=== PATIENT | male | born 1985 | race African-American/Black ===

== ENCOUNTER 2017-03-18 18:07 | Inpatient (IN) | payer MEDICARE, MEDICAID ==
[~2017-03-18] VITALS: Ht 193 cm; Wt 73.3 kg
[~2017-03-18 18:07] MED LIST: FOLI1TAB51 PO; HYD500C PO; HYDR-4683 PO; OXYC10TA44 PO
[2017-03-18] MEDS ORDERED: SODIUM CHLORIDE 0.9% 1,000 ML IV ONE ×2 (18:23)
[2017-03-18] MEDS ORDERED: ONDANSETRON HCL 4 MG/2 ML VIAL IV ONE (18:30)
[2017-03-18] MEDS ORDERED: HYDROmorphone HCL 2 MG/ML VL IV ONE (18:30)
[2017-03-18 18:53] LABS: White Blood Cell 20.8 10^3/uL (4.4-10.8)
[2017-03-18 18:54] LABS: Hematocrit 25.3 % (41.0-53.0); Hemoglobin 8.9 g/dL (13.5-17.5); Mean Corpuscular Hemoglobin 37.9 pg (28.0-32.0); Mean Corpuscular Hgb Conc. 35.2 g/dL (32.0-36.0); Mean Corpuscular Volume 107.5 fL (80.0-100.0); Platelet Count (auto) 460 10^3/uL (140-450); Red Blood Cells 2.35 10^6/uL (4.5-5.90)
[2017-03-18 19:06] LABS: INR 1.13 (0.9-1.15); Partial Thromboplastin Time 24.6 sec (22.64-33.71); Prothrombin Time 12.3 sec (9.37-12.3); Red Cell Distribution Width 21.1 % (11.8-14.3)
[2017-03-18 19:07] LABS: Band Neutrophils % (manual) 0; Basophils % (manual) 0 (0.0-2.0); Blast Cells 0; Metamyelocytes % 0; Myelocytes % 0; Promyelocytes % 0; Reactive Lymphocytes 0
[2017-03-18 19:12] LABS: Alanine Aminotransferase 22 U/L (16-61); Albumin 3.6 g/dL (3.4-5.0); Anion Gap 9 (5-15); Aspartate Aminotransferase 23 U/L (15-37); BUN/Creatinine Ratio 10.6; Blood Urea Nitrogen 7 mg/dL (7-18); Carbon Dioxide 23 mmol/L (21-32); Chloride 111 mmol/L (98-107); GFR African American 182 mL/min; GFR Non-African American 151 mL/min; Glucose 101 mg/dL (74-106); Potassium 3.3 mmol/L (3.5-5.1); Sodium 143 mmol/L (136-145)
[2017-03-18 19:17] LABS: Alkaline Phosphatase 88 U/L (45-117); Total Protein 7.4 g/dL (6.4-8.2)
[2017-03-18 19:25] LABS: Eosinophils % (manual) 1 (0-7); Lymphocytes % (manual) 14 (10.0-50.0); Monocytes % (manual) 8 (0-12)
[2017-03-18] MEDS ORDERED: ONDANSETRON HCL 4 MG/2 ML VIAL IV PRN (22:45)
[2017-03-18] MEDS ORDERED: ACETAMINOPHEN 500 MG TAB PO PRN (22:45)
[2017-03-18] MEDS: HYDROmorphone HCL 2 MG/ML VL IV PRN (23:30)
[2017-03-18] MEDS ORDERED: POTASSIUM CHL 20 Meq TABLET PO ONE (23:45)
[2017-03-19] MEDS ORDERED: PIPERACILLIN-TAZOB 3.375GM 50 ML IV ONE
[2017-03-19] MEDS: D5W/SOD CHLO 0.9% 1,000 ML IV SCH ×3 (00:56→10:55)
[2017-03-19 01:39] VITALS: BP 112/63
[2017-03-19] MEDS: HYDROmorphone HCL 2 MG/ML VL IV PRN ×5 (03:30→20:29)
[2017-03-19] MEDS: HYDROcodone-ACET 5/325MG TAB PO PRN ×3 (05:10→15:51)
[2017-03-19 05:28] VITALS: BP 109/64
[2017-03-19 06:22] LABS: Hematocrit 22.2 % (41.0-53.0); Hemoglobin 7.7 g/dL (13.5-17.5); Mean Corpuscular Hemoglobin 37.5 pg (28.0-32.0); Mean Corpuscular Hgb Conc. 34.9 g/dL (32.0-36.0); Mean Corpuscular Volume 107.6 fL (80.0-100.0); Platelet Count (auto) 386 10^3/uL (140-450); Red Blood Cells 2.07 10^6/uL (4.5-5.90); White Blood Cell 14.4 10^3/uL (4.4-10.8)
[2017-03-19 06:32] LABS: Band Neutrophils % (manual) 0; Basophils % (manual) 0 (0.0-2.0); Blast Cells 0; Metamyelocytes % 0; Myelocytes % 0; Promyelocytes % 0; Reactive Lymphocytes 0; Red Cell Distribution Width 20.1 % (11.8-14.3)
[2017-03-19 06:47] LABS: Anion Gap 9 (5-15); BUN/Creatinine Ratio 8.3; Blood Urea Nitrogen 5 mg/dL (7-18); Calcium 7.9 mg/dL (8.5-10.1); Carbon Dioxide 24 mmol/L (21-32); Chloride 110 mmol/L (98-107); GFR African American 203 mL/min; GFR Non-African American 168 mL/min; Glucose 115 mg/dL (74-106); Potassium 3.7 mmol/L (3.5-5.1); Sodium 143 mmol/L (136-145)
[2017-03-19 06:51] LABS: Eosinophils % (manual) 4 (0-7); Lymphocytes % (manual) 20 (10.0-50.0); Monocytes % (manual) 17 (0-12)
[2017-03-19 09:00] VITALS: BP 109/60
[2017-03-19] MEDS ORDERED: HYDROXYUREA 500 MG CAP PO SCH (10:00)
[2017-03-19] MEDS: HYDROXYUREA 500 MG CAP PO SCH ×2 (10:17→22:34)
[2017-03-19] MEDS: FOLIC ACID 1 MG TAB PO SCH (10:18)
[2017-03-19 13:00] VITALS: BP 109/67
[2017-03-19] MEDS ORDERED: HYDROmorphone HCL 2 MG/ML VL IV ONE (13:00)
[2017-03-19 17:00] VITALS: BP 117/73
[2017-03-19 22:00] VITALS: BP 112/62
[2017-03-19] MEDS: HYDROcodone-ACET 10/325MG TAB PO PRN (23:08)
[2017-03-20] MEDS: D5W/SOD CHLO 0.9% 1,000 ML IV SCH ×4 (00:12→23:45)
[2017-03-20] MEDS: HYDROmorphone HCL 2 MG/ML VL IV PRN ×6 (00:43→21:41)
[2017-03-20 05:40] VITALS: BP 108/47
[2017-03-20 06:15] LABS: Hemoglobin 7.5 g/dL (13.5-17.5); Mean Corpuscular Hgb Conc. 35.6 g/dL (32.0-36.0)
[2017-03-20 06:17] LABS: Hematocrit 21.1 % (41.0-53.0); Mean Corpuscular Hemoglobin 38.2 pg (28.0-32.0); Mean Corpuscular Volume 107.2 fL (80.0-100.0); Platelet Count (auto) 401 10^3/uL (140-450); Red Blood Cells 1.97 10^6/uL (4.5-5.90)
[2017-03-20 06:30] LABS: Red Cell Distribution Width 20.4 % (11.8-14.3)
[2017-03-20 06:31] LABS: Band Neutrophils % (manual) 0; Basophils % (manual) 0 (0.0-2.0); Blast Cells 0; Metamyelocytes % 0; Myelocytes % 0; Promyelocytes % 0; Reactive Lymphocytes 0
[2017-03-20 07:01] LABS: Eosinophils % (manual) 12 (0-7); Lymphocytes % (manual) 36 (10.0-50.0); Monocytes % (manual) 23 (0-12)
[2017-03-20] MEDS: HYDROcodone-ACET 10/325MG TAB PO PRN (08:11)
[2017-03-20 08:30] VITALS: BP 99/61
[2017-03-20] MEDS: HYDROXYUREA 500 MG CAP PO SCH ×2 (08:55→21:41)
[2017-03-20] MEDS: FOLIC ACID 1 MG TAB PO SCH (08:55)
[2017-03-20] MEDS: LEVOFLOXACIN 750MG 150 ML IV SCH (08:56)
[2017-03-20 09:51] LABS: Urine Bacteria NONE SEEN /hpf (None Seen); Urine Blood Negative /uL (Negative); Urine Specific Gravity 1.008 (1.001-1.035); Urine WBC <1 /hpf (0 - 3)
[2017-03-20 10:14] LABS: Alcohol, Urine < 3.0 mg/dL (0-5); Amphetamine Screen, Urine NEGATIVE (NEGATIVE); Barbiturate Scree,Urine NEGATIVE (NEGATIVE); Benzodiazephine Screen, Urine NEGATIVE (NEGATIVE); Cannabinoid Screen, Urine POSITIVE (NEGATIVE); Cocaine Screen, Urine NEGATIVE (NEGATIVE); Opiate Scree,Urine POSITIVE (NEGATIVE); Phencyclidine Screen, Urine NEGATIVE (NEGATIVE)
[2017-03-20 12:23] VITALS: BP 109/66
[2017-03-20 17:11] VITALS: BP 101/62
[2017-03-20 22:24] VITALS: BP 112/61
[2017-03-21] MEDS: HYDROmorphone HCL 2 MG/ML VL IV PRN ×6 (02:05→23:40)
[2017-03-21 05:29] VITALS: BP 107/67
[2017-03-21 06:33] LABS: Eosinophils % (auto) 8.9 % (0.0-7.0); Hemoglobin 8.2 g/dL (13.5-17.5); Monocytes # (auto) 1.6 uL; White Blood Cell 11.5 10^3/uL (4.4-10.8)
[2017-03-21 06:36] LABS: Basophils # (auto) 0 uL; Basophils % (auto) 0.4 % (0.0-2.0); Hematocrit 23.1 % (41.0-53.0); Lymphocytes # (auto) 4.6 uL; Lymphocytes % (auto) 40.4 % (10.0-50.0); Mean Corpuscular Hemoglobin 37.7 pg (28.0-32.0); Mean Corpuscular Hgb Conc. 35.5 g/dL (32.0-36.0); Mean Corpuscular Volume 106.3 fL (80.0-100.0); Neutrophils # (auto) 4.2 uL; Neutrophils % (auto) 36.3 % (37.0-80.0); Nucleated Red Blood Cells % 2.3 %; Platelet Count (auto) 474 10^3/uL (140-450); Red Blood Cells 2.17 10^6/uL (4.5-5.90)
[2017-03-21] MEDS: D5W/SOD CHLO 0.9% 1,000 ML IV SCH ×3 (07:45→23:45)
[2017-03-21 08:38] VITALS: BP 97/53
[2017-03-21] MEDS: LEVOFLOXACIN 750MG 150 ML IV SCH (10:31)
[2017-03-21] MEDS: HYDROXYUREA 500 MG CAP PO SCH ×2 (10:31→22:05)
[2017-03-21] MEDS: FOLIC ACID 1 MG TAB PO SCH (10:31)
[2017-03-21 12:40] VITALS: BP 107/57
[2017-03-21 17:12] VITALS: BP 106/56
[2017-03-21] MEDS ORDERED: KETOROLAC TROMETH 30 MG/ML 1ML VIAL IV PRN (19:30)
[2017-03-21] MEDS: HYDROcodone-ACET 10/325MG TAB PO PRN (22:05)
[2017-03-21 22:12] VITALS: BP 116/62
[2017-03-22] MEDS: HYDROmorphone HCL 2 MG/ML VL IV PRN ×6 (00:19→20:46)
[2017-03-22 04:59] VITALS: BP 113/71
[2017-03-22 08:00] VITALS: BP 99/59
[2017-03-22] MEDS: D5W/SOD CHLO 0.9% 1,000 ML IV SCH ×2 (08:21→14:57)
[2017-03-22 08:49] VITALS: BP 99/54
[2017-03-22] MEDS: FOLIC ACID 1 MG TAB PO SCH (09:56)
[2017-03-22] MEDS: HYDROXYUREA 500 MG CAP PO SCH ×2 (09:56→22:04)
[2017-03-22] MEDS: LEVOFLOXACIN 750MG 150 ML IV SCH (09:57)
[2017-03-22] MEDS: HYDROcodone-ACET 10/325MG TAB PO PRN (10:23)
[2017-03-22] MEDS: KETOROLAC TROMETH 30 MG/ML 1ML VIAL IV SCH ×2 (12:00→18:05)
[2017-03-22 13:04] VITALS: BP 99/53
[2017-03-22 17:05] VITALS: BP 95/56
[2017-03-22 22:49] VITALS: BP 107/54
[2017-03-23] MEDS: KETOROLAC TROMETH 30 MG/ML 1ML VIAL IV SCH ×4 (00:17→18:00)
[2017-03-23] MEDS: D5W/SOD CHLO 0.9% 1,000 ML IV SCH ×3 (00:17→13:38)
[2017-03-23] MEDS: HYDROmorphone HCL 2 MG/ML VL IV PRN ×7 (01:08→21:21)
[2017-03-23 05:20] VITALS: BP 108/53
[2017-03-23 08:00] VITALS: BP 113/72
[2017-03-23] MEDS: HYDROcodone-ACET 10/325MG TAB PO PRN (08:14)
[2017-03-23] MEDS: FOLIC ACID 1 MG TAB PO SCH (11:16)
[2017-03-23] MEDS: HYDROXYUREA 500 MG CAP PO SCH ×2 (11:17→22:33)
[2017-03-23 12:00] VITALS: BP 119/71
[2017-03-23 17:22] VITALS: BP 115/71
[2017-03-23 22:52] VITALS: BP 133/77
[2017-03-24] MEDS: D5W/SOD CHLO 0.9% 1,000 ML IV SCH ×4 (00:13→23:45)
[2017-03-24] MEDS: HYDROmorphone HCL 2 MG/ML VL IV PRN ×8 (00:13→21:35)
[2017-03-24] MEDS: KETOROLAC TROMETH 30 MG/ML 1ML VIAL IV SCH ×4 (06:00→18:24)
[2017-03-24 06:26] VITALS: BP 117/72
[2017-03-24 07:58] VITALS: BP 106/72
[2017-03-24] MEDS: FOLIC ACID 1 MG TAB PO SCH (09:28)
[2017-03-24] MEDS: HYDROXYUREA 500 MG CAP PO SCH ×2 (09:29→21:34)
[2017-03-24 11:47] VITALS: BP 105/63
[2017-03-24 16:08] VITALS: BP 108/59
[2017-03-24 20:21] LABS: Basophils # (auto) 0.1 uL; Basophils % (auto) 1.5 % (0.0-2.0); Eosinophils # (auto) 0.7 uL; Eosinophils % (auto) 7.7 % (0.0-7.0); Hemoglobin 7.5 g/dL (13.5-17.5); Lymphocytes # (auto) 3.9 uL; Mean Corpuscular Hemoglobin 36.6 pg (28.0-32.0); Mean Corpuscular Hgb Conc. 34.2 g/dL (32.0-36.0); Mean Corpuscular Volume 107.2 fL (80.0-100.0); Monocytes # (auto) 1.4 uL; Monocytes % (auto) 16.3 % (0.0-12.0); Neutrophils # (auto) 2.4 uL; Neutrophils % (auto) 28.5 % (37.0-80.0); Nucleated Red Blood Cells % 0.4 %; Platelet Count (auto) 479 10^3/uL (140-450); Red Blood Cells 2.05 10^6/uL (4.5-5.90); Red Cell Distribution Width 17.9 % (11.8-14.3); White Blood Cell 8.5 10^3/uL (4.4-10.8)
[2017-03-24 22:00] VITALS: BP 107/57
[2017-03-25] MEDS: HYDROmorphone HCL 2 MG/ML VL IV PRN ×8 (00:35→23:16)
[2017-03-25 06:00] VITALS: BP 122/75
[2017-03-25] MEDS: KETOROLAC TROMETH 30 MG/ML 1ML VIAL IV SCH ×5 (06:00→23:16)
[2017-03-25] MEDS: D5W/SOD CHLO 0.9% 1,000 ML IV SCH ×2 (07:45→15:45)
[2017-03-25 09:00] VITALS: BP 99/57
[2017-03-25] MEDS: HYDROXYUREA 500 MG CAP PO SCH ×2 (10:01→21:41)
[2017-03-25] MEDS: FOLIC ACID 1 MG TAB PO SCH (10:01)
[2017-03-25 13:21] VITALS: BP 112/65
[2017-03-25 17:00] VITALS: BP_SYST 113; BP_SYST 120; BP_DIAS 56; BP_DIAS 75
[2017-03-25 17:49] LABS: Hemoglobin 7.7 g/dL (13.5-17.5); Mean Corpuscular Volume 101.2 fL (80.0-100.0); Monocytes # (auto) 1.2 uL; Nucleated Red Blood Cells % 0.1 %; Red Cell Distribution Width 19.8 % (11.8-14.3)
[2017-03-25 17:51] LABS: Basophils # (auto) 0.1 uL; Basophils % (auto) 1.6 % (0.0-2.0); Eosinophils # (auto) 0.5 uL; Eosinophils % (auto) 5.7 % (0.0-7.0); Hematocrit 20.8 % (41.0-53.0); Lymphocytes # (auto) 3.4 uL; Mean Corpuscular Hemoglobin 37.3 pg (28.0-32.0); Mean Corpuscular Hgb Conc. 36.9 g/dL (32.0-36.0); Monocytes % (auto) 14.8 % (0.0-12.0); Neutrophils # (auto) 3.2 uL; Neutrophils % (auto) 37.9 % (37.0-80.0); Platelet Count (auto) 478 10^3/uL (140-450); Red Blood Cells 2.06 10^6/uL (4.5-5.90); White Blood Cell 8.4 10^3/uL (4.4-10.8)
[2017-03-25] MEDS: ZOLPIDEM TARTRATE 5 MG TAB PO PRN (21:41)
[2017-03-25] MEDS: HYDROcodone-ACET 10/325MG TAB PO PRN (21:59)
[2017-03-25 22:00] VITALS: BP 126/77
[2017-03-26] MEDS: D5W/SOD CHLO 0.9% 1,000 ML IV SCH ×3 (00:03→16:14)
[2017-03-26] MEDS: HYDROmorphone HCL 2 MG/ML VL IV PRN ×5 (03:12→23:32)
[2017-03-26 05:22] VITALS: BP 113/62
[2017-03-26] MEDS: KETOROLAC TROMETH 30 MG/ML 1ML VIAL IV SCH ×3 (05:38→18:01)
[2017-03-26 09:00] VITALS: BP 112/58
[2017-03-26] MEDS: HYDROXYUREA 500 MG CAP PO SCH ×2 (09:52→21:37)
[2017-03-26] MEDS: FOLIC ACID 1 MG TAB PO SCH (09:52)
[2017-03-26] MEDS ORDERED: LEVOFLOXACIN 250 MG TAB PO ONE (12:45)
[2017-03-26 13:00] VITALS: BP 121/74
[2017-03-26 17:15] VITALS: BP 120/71
[2017-03-26] MEDS: ZOLPIDEM TARTRATE 5 MG TAB PO PRN (21:37)
[2017-03-26 23:54] VITALS: BP 121/72
[2017-03-27] MEDS: D5W/SOD CHLO 0.9% 1,000 ML IV SCH ×4 (00:31→23:23)
[2017-03-27] MEDS: HYDROmorphone HCL 2 MG/ML VL IV PRN ×5 (03:43→23:16)
[2017-03-27 04:51] VITALS: BP 120/72
[2017-03-27] MEDS: HYDROcodone-ACET 10/325MG TAB PO PRN ×4 (04:55→18:08)
[2017-03-27] MEDS: LEVOFLOXACIN 250 MG TAB PO SCH (07:46)
[2017-03-27] MEDS: HYDROXYUREA 500 MG CAP PO SCH ×2 (07:46→22:09)
[2017-03-27] MEDS: FOLIC ACID 1 MG TAB PO SCH (07:46)
[2017-03-27 08:47] VITALS: BP 134/74
[2017-03-27 12:01] VITALS: BP 115/72
[2017-03-27] MEDS ORDERED: KETOROLAC TROMETH 30 MG/ML 1ML VIAL IV PRN (15:30)
[2017-03-27 22:00] VITALS: BP 150/79
[2017-03-27] MEDS: ZOLPIDEM TARTRATE 5 MG TAB PO PRN (23:16)
[2017-03-28] MEDS: HYDROcodone-ACET 10/325MG TAB PO PRN ×2 (00:49→07:55)
[2017-03-28] MEDS: HYDROmorphone HCL 2 MG/ML VL IV PRN ×5 (05:00→21:28)
[2017-03-28 05:17] VITALS: BP 111/71
[2017-03-28 09:00] VITALS: BP 135/80
[2017-03-28] MEDS: HYDROXYUREA 500 MG CAP PO SCH ×2 (09:21→21:28)
[2017-03-28] MEDS: LEVOFLOXACIN 250 MG TAB PO SCH (09:21)
[2017-03-28] MEDS: D5W/SOD CHLO 0.9% 1,000 ML IV SCH ×3 (09:21→23:24)
[2017-03-28] MEDS: FOLIC ACID 1 MG TAB PO SCH (09:22)
[2017-03-28] MEDS: OXYCODONE W/ ACETAMINOPHEN 5/325MG TABLET PO PRN ×4 (11:41→23:25)
[2017-03-28 13:00] VITALS: BP 105/63
[2017-03-28 17:33] VITALS: BP 112/68
[2017-03-28 21:30] VITALS: BP 130/74
[2017-03-29] VITALS (15 sets, daily range): BP systolic 95–120; BP diastolic 51–76
[2017-03-29] MEDS: HYDROmorphone HCL 2 MG/ML VL IV PRN ×6 (01:29→21:45)
[2017-03-29] MEDS: OXYCODONE W/ ACETAMINOPHEN 5/325MG TABLET PO PRN ×6 (03:23→23:33)
[2017-03-29] MEDS: D5W/SOD CHLO 0.9% 1,000 ML IV SCH ×2 (07:45→23:34)
[2017-03-29 08:15] LABS: Basophils # (auto) 0.1 uL
[2017-03-29 08:17] LABS: Eosinophils # (auto) 0.4 uL; Eosinophils % (auto) 5.5 % (0.0-7.0); Hematocrit 18.1 % (41.0-53.0); Lymphocytes # (auto) 3.7 uL; Lymphocytes % (auto) 52.3 % (10.0-50.0); Mean Corpuscular Hemoglobin 39.4 pg (28.0-32.0); Mean Corpuscular Hgb Conc. 35.6 g/dL (32.0-36.0); Mean Corpuscular Volume 110.5 fL (80.0-100.0); Monocytes # (auto) 0.9 uL; Monocytes % (auto) 13.1 % (0.0-12.0); Neutrophils % (auto) 28.1 % (37.0-80.0); Platelet Count (auto) 544 10^3/uL (140-450); Red Blood Cells 1.64 10^6/uL (4.5-5.90)
[2017-03-29 08:19] LABS: Nucleated Red Blood Cells % 24.9 %; Red Cell Distribution Width 21.8 % (11.8-14.3)
[2017-03-29 08:20] LABS: White Blood Cell 9.7 10^3/uL (4.4-10.8)
[2017-03-29 08:22] LABS: Hemoglobin 6.5 g/dL (13.5-17.5)
[2017-03-29 08:36] LABS: BUN/Creatinine Ratio 6.6; Calcium 8.4 mg/dL (8.5-10.1); Potassium 3.6 mmol/L (3.5-5.1)
[2017-03-29] MEDS: HYDROXYUREA 500 MG CAP PO SCH ×2 (09:30→21:45)
[2017-03-29] MEDS: FOLIC ACID 1 MG TAB PO SCH (09:30)
[2017-03-29] MEDS: LEVOFLOXACIN 250 MG TAB PO SCH (10:00)
[2017-03-30] MEDS: OXYCODONE W/ ACETAMINOPHEN 5/325MG TABLET PO PRN ×4 (00:46→12:01)
[2017-03-30] MEDS: HYDROmorphone HCL 2 MG/ML VL IV PRN ×4 (01:25→13:07)
[2017-03-30 05:00] VITALS: BP 117/73
[2017-03-30 07:10] LABS: Hematocrit 23.2 % (41.0-53.0); Hemoglobin 8.2 g/dL (13.5-17.5)
[2017-03-30] MEDS: D5W/SOD CHLO 0.9% 1,000 ML IV SCH (07:45)
[2017-03-30 09:00] VITALS: BP 114/75
[2017-03-30] MEDS: HYDROXYUREA 500 MG CAP PO SCH (09:37)
[2017-03-30] MEDS: FOLIC ACID 1 MG TAB PO SCH (09:37)
[2017-03-30] MEDS: LEVOFLOXACIN 250 MG TAB PO SCH (09:37)
[2017-03-30 11:37] VITALS: BP 114/75
== END 2017-03-30 15:00 | disposition home or self-care (01) | DRG 812 ==
LOC: EDBD 18:07 → ER 18:13 → EDUNIT# 18:14 → OVERFLOW 18:14 → CENTRAL 23:57
PROVIDERS: ADMIT Nurse Practitioner Family; ATTEND Internal Medicine Pulmonary Disease
PROC: 30233N1 Transfusion of Nonautologous Red Blood Cells into Peripheral Vein, Percutaneous Approach (ICD-10-PCS; principal; 2017-03-29)
DX: D57.00 Hb-SS disease with crisis, unspecified (principal); R65.10 Systemic inflammatory response syndrome (SIRS) of non-infectious origin without acute organ dysfunction; E87.6 Hypokalemia; Z82.49 Family history of ischemic heart disease and other diseases of the circulatory system; B34.9 Viral infection, unspecified; Z83.3 Family history of diabetes mellitus; Z90.81 Acquired absence of spleen; Z79.2 Long term (current) use of antibiotics; R06.03 Acute respiratory distress
CPT/HCPCS: 36415; 71010; 71046; 80048; 80053; 80307; 81001; 84484; 85007; 85014; 85018; 85025; 85027; 85045; 85610; 85730; 86850; 86900; 86901; 86920; 87040; 87081; 93005; 96361; 96374; 96375; 96376; J1885; J1956; J2405; J2543; J7042